=== PATIENT | male | born 1980 | race Caucasian/White ===

== ENCOUNTER 2016-11-10 13:48 | Emergency (ER) | payer BC ==
[2016-11-10 14:28] VITALS: BP 127/84
[2016-11-10] MEDS ORDERED: Ketorolac 30 MG/ML SDV IVPUSH ONE (15:05)
[2016-11-10] MEDS ORDERED: Sodium Chloride 0.9% 10 ML Syringe FLUSH PRN (15:05)
[2016-11-10] MEDS ORDERED: Sodium Chloride 0.9% 1,000 ML IV ONE (15:05)
[2016-11-10] MEDS ORDERED: Dicyclomine 10 MG Cap PO ONE (15:07)
--- NOTE | 2016-11-10 15:12 | EDM.PDOC ---
ED HPI GENERAL MEDICAL PROBLEM - General Chief Complaint: Abdominal Pain Stated Complaint: RIGHT SIDE PAIN Time Seen by Provider: 11/10/16 14:52 Source of Information: Reports: Patient History Limitations: Reports: No Limitations - History of Present Illness INITIAL COMMENTS - FREE TEXT/NARRATIVE: Patient is a 35-year-old male presents ED complaining of sudden onset of right flank pain. This started in the middle the night. Pain has been constant with waxing waning in intensity. Pain is described as being sharp in nature with unpredictable worsening of symptoms. He has a prior history of similar symptoms and was evaluated in the ED for constipation. States he's had 2 bowel movements today described as being hard with no straining required. No blood present. He has no fever/nausea, chest pain, shortness of breath, diarrhea, pain with urination, rash, or any additional complaints. He is taking multiple over-the- counter supplements for weight lifting. Does not have a history of kidney stones or abdominal surgeries. He has taken no prescription medications. Does not smoke. Utilize alcohol only intermittently. Denies recreational drug use. Treatments HAT TRIMMER: Reports: Other (see below) Other Treatments HAT TRIMMER: ibuprofen Right Abdominal Pain Score (Numeric/FACES): 10 - Related Data Allergies Allergy/AdvReac Type Severity Reaction Status Date / Time No Known Allergies Allergy Verified 01/25/16 22:29 Home Meds: Home Meds Hyoscyamine Sulfate [Levsin-Sl] 0.125 mg SL Q6H PRN #10 tab.subl 01/26/16 [Rx] Acetaminophen/HYDROcodone [[place] 325-5 MG] 1 tab PO Q6H PRN #12 tablet 11/10/16 [Rx] Tamsulosin HCl [Flomax] 0.4 mg PO ACBREAKFAST #7 cap.er.24h 11/10/16 [Rx] Past Medical History - Past Health History Medical/Surgical History: Denies Medical/Surgical History Social & Family History - Tobacco Use Smoking Status *Q: Never Smoker Second Hand Smoke Exposure: No - Caffeine Use Caffeine Use: Reports: None - Recreational Drug Use Recreational Drug Use: No ED ROS GENERAL - Review of Systems Review Of Systems: See Below Constitutional: Denies: Fever, Chills, Malaise, Decreased Appetite Respiratory: Reports: No Symptoms Cardiovascular: Reports: No Symptoms GI/Abdominal: Reports: Abdominal Pain. Denies: Black Stool, Bloody Stool, Constipation, Diarrhea, Decreased Appetite, Difficulty Swallowing, Distension, Flatus, Hematemesis, Hematochezia, Melena, Nausea, Vomiting : Reports: Flank Pain (Right flank). Denies: Dysuria, Frequency, Hematuria, Urgency Musculoskeletal: Reports: Back Pain (Right flank) Skin: Denies: Rash Neurological: Reports: No Symptoms ED EXAM, GI/ABD - Physical Exam Exam: See Below Exam Limited By: No Limitations General Appearance: Alert, WD/WN, No Apparent Distress Ears: Hearing Grossly Normal Nose: Normal Inspection Throat/Mouth: Normal Voice, No Airway Compromise Neck: Normal Inspection, Supple Respiratory/Chest: No Respiratory Distress, Lungs Clear, Normal Breath Sounds, No Accessory Muscle Use, Chest Non-Tender Cardiovascular: Normal Peripheral Pulses, Regular Rate, Rhythm, No Murmur GI/Abdominal Exam: Normal Bowel Sounds, Soft, No Organomegaly, No Distention, Tender (Tenderness noted to the right flank. No McBurney's or Ellison's sign present.) (Male) Exam: Deferred Rectal (Males) Exam: Deferred Back Exam: Normal Inspection. No: CVA Tenderness (L), CVA Tenderness (R) Extremities: Normal Inspection Neurological: Alert, Oriented, CN II-XII Intact, Normal Cognition, No Motor/ Sensory Deficits Psychiatric: Normal Affect, Normal Mood Skin Exam: Warm, Dry, Intact, Normal Color, No Rash Course - Vital Signs Last Recorded V/S: Last Vital Signs Temp 97.9 F 11/10/16 14:24 Pulse 83 11/10/16 14:24 Resp 18 11/10/16 14:24 BP 127/84 11/10/16 14:24 Pulse Ox 98 11/10/16 14:24 - Orders/Labs/Meds Orders: Active Orders 24 hr Category Date Time Status Peripheral IV Care [RC] . DIRECTED Care 11/10/16 15:06 Active Abdomen 2V AP Flat Upright [CR] Stat Exams 11/10/16 15:05 Taken DME for Discharge [COMM] Stat Oth 11/10/16 17:30 Ordered Peripheral IV Insertion Adult [OM.PC] Stat Oth 11/10/16 15:05 Ordered Labs: Laboratory Tests 11/10/16 11/10/16 11/10/16 Range/Units 14:50 15:35 15:35 WBC 9.98 H (4.23-9.07) K/mm3 RBC 5.78 (4.63-6.08) M/mm3 Hgb 16.9 (13.7-17.5) gm/L Hct 46.5 (40.1-51.0) % MCV 80.4 (79.0-92.2) fl MCH 29.2 (25.7-32.2) pg MCHC 36.3 H (32.2-35.5) g/dl RDW Std Deviation 34.5 L (35.1-43.9) fL Plt Count 245 (163-337) K/mm3 MPV 9.5 (9.4-12.3) fl Neut % (Auto) 76.3 H (34.0-67.9) % Lymph % (Auto) 17.0 L (21.8-53.1) % [place] % (Auto) 5.2 L (5.3-12.2) % Eos % (Auto) 1.0 (0.8-7.0) Baso % (Auto) 0.4 (0.1-1.2) % Neut # (Auto) 7.61 H (1.78-5.38) K/mm3 Lymph # (Auto) 1.70 (1.32-3.57) K/mm3 [place] # (Auto) 0.52 (0.30-0.82) K/mm3 Eos # (Auto) 0.10 (0.04-0.54) K/mm3 Baso # (Auto) 0.04 (0.01-0.08) K/mm3 Sodium 139 (136-145) mEq/L Potassium 3.9 (3.5-5.1) mEq/L Chloride 105 (98-107) mEq/L Carbon Dioxide 30 (21-32) mEq/L Anion Gap 7.9 (5-15) BUN 20 H (7-18) mg/dL Creatinine 1.1 (0.7-1.3) mg/dL Est Cr Clr Drug Dosing 98.88 mL/min Estimated GFR (MDRD) > 60 (>60) mL/min BUN/Creatinine Ratio 18.2 H (14-18) Glucose 99 (74-106) mg/dL Calcium 9.1 (8.5-10.1) mg/dL Total Bilirubin 0.6 (0.2-1.0) mg/dL AST 24 (15-37) U/L ALT 41 (16-63) U/L Alkaline Phosphatase 63 (46-116) U/L C-Reactive Protein < 0.2 (<1.0) mg/dL Total Protein 7.5 (6.4-8.2) g/dl Albumin 4.2 (3.4-5.0) g/dl Globulin 3.3 gm/dL Albumin/Globulin Ratio 1.3 (1-2) Lipase 131 (73-393) U/L Urine Color Yellow (Yellow) Urine Appearance Clear (Clear) Urine pH 6.5 (5.0-8.0) Ur Specific [place] 1.025 (1.005-1.030) Urine Protein Trace H (Negative) Urine Glucose (UA) Negative (Negative) Urine Ketones Negative (Negative) Urine Occult Blood 3+ H (Negative) Urine Nitrite Negative (Negative) Urine Bilirubin Negative (Negative) Urine Urobilinogen 0.2 (0.2-1.0) Ur Leukocyte Esterase Negative (Negative) Urine RBC 75-100 H (0-5) /hpf Urine WBC 0-5 (0-5) /hpf Ur Epithelial Cells 0-5 (0-5) /hpf Urine Bacteria Few (FEW) /hpf Urine Mucus Few (FEW) /hpf Meds: Medications Discontinued Medications Generic Name Dose Route Start Last Admin Trade Name Freq PRN Reason Stop Dose Admin Dicyclomine HCl 10 mg 11/10/16 15:07 11/10/16 15:45 Bentyl PO 11/10/16 15:08 10 mg ONETIME ONE Administration Sodium Chloride 1,000 mls @ 999 mls/hr 11/10/16 15:05 11/10/16 15:42 Normal Saline IV 11/10/16 16:05 999 mls/hr ONETIME ONE Administration Ketorolac Tromethamine 30 mg 11/10/16 15:05 11/10/16 15:43 Toradol IVPUSH 11/10/16 15:06 30 mg ONETIME ONE Administration Sodium Chloride 10 ml 11/10/16 15:05 11/10/16 15:46 Saline Flush FLUSH 10 ml ASDIRECTED PRN Administration Keep Vein Open Tamsulosin HCl 0.4 mg 11/10/16 17:29 11/10/16 17:54 Flomax PO 11/10/16 17:30 0.4 mg ONETIME ONE Administration - Re-Assessments/Exams Free Text/Narrative Re-Assessment/Exam: IV will be established with normal saline 999 MLS per hour, Toradol 30 mg IVP, and Bentyl 10 mg by mouth. Initial labs and studies include CBC, chem 14, lipase , CRP, UA, and 2 view of the abdomen. 11/10/16 15:41 x-ray of the abdomen did reveal copious amounts of stool. Nonspecific air pattern. No signs of obstruction. Awaiting for results of labs. 11/10/16 17:00 Labs reviewed: White blood cell count 9.98, hemoglobin 16.9, platelet count 245, neutrophil percentage is 76.3 with a mildly elevation in neutrophil number is 7.61, sodium 139, potassium 3.9, creatinine 1.1, glucose 99 , LFTs normal limits, CRP less than 0.2, lipase 131. UA revealed protein trace, occult blood 3+, nitrates negative, leukocyte esterase negative, urine micro pending. Urine Micro revealed RBCs 75-200. CT of the abdomen without contrast ordered renal stone protocol. 11/10/16 17:31 CT completed revealing approximately 3.6 x 3.6 cm kidney stone with hydronephrosis present. Ordered Flomax 0.4 mg by mouth and urine strainer to be sent home with the patient. Final interpretation of CT pending. 11/10/16 18:01 CT abdomen and pelvis impression: Proximal right ureteral stone measuring 4.6 mm at the mid L4 level causing proximal hydronephrosis. Other incidental findings. Will discharge patient home with instructions as documented. Departure - Departure Time of Disposition: 18:02 Disposition: Home, Self-Care 01 Condition: Good Clinical Impression: Kidney stone on right side Hydronephrosis Qualifiers: Hydronephrosis type: with ureteral calculous obstruction Qualified Code(s): N13.2 - Hydronephrosis with renal and ureteral calculous obstruction - Discharge Information Prescriptions: Acetaminophen/HYDROcodone [[place] 325-5 MG] 1 tab PO Q6H PRN #12 tablet PRN Reason: Pain (Severe 7-10) Tamsulosin HCl [Flomax] 0.4 mg PO ACBREAKFAST #7 cap.er.24h Instructions: Pain Medicine Instructions, [id number] Referrals: PCP,None [Primary Care Provider] - Forms: ED Department Discharge, ED Return to Work/School Form Additional Instructions: As discussed CT did reveal kidney stone within the right ureter. It should pass on its own accord. Push the fluids. Take Tylenol and ibuprofen in alternating fashion for pain. Will have you take Flomax 1 tablet every day for the next 7 days. For severe pain not managed with the above therapies take [place] one tab every 6 hours as needed. No driving while taking this medication. Do not take tylenol with the norco. Call and make an appointment with urologist if this kidney stone has not passed by Thursday/. Utilize urine strainer for every urine void. Return to the ED for any new or worsening symptoms. - My Orders Last 24 Hours: My Active Orders 11/10/16 15:05 Abdomen 2V AP Flat Upright [CR] Stat Peripheral IV Insertion Adult [OM.PC] Stat 11/10/16 15:06 Peripheral IV Care [RC] . DIRECTED 11/10/16 17:30 DME for Discharge [COMM] Stat - Assessment/Plan Last 24 Hours: My Active Orders 11/10/16 15:05 Abdomen 2V AP Flat Upright [CR] Stat Peripheral IV Insertion Adult [OM.PC] Stat 11/10/16 15:06 Peripheral IV Care [RC] . DIRECTED 11/10/16 17:30 DME for Discharge [COMM] Stat
[2016-11-10] MEDS ORDERED: Tamsulosin 0.4 MG Cap.ER PO ONE (17:29)
--- NOTE | 2016-11-10 17:50 | CT ---
CT abdomen and pelvis Technique: Multiple axial sections were obtained from above the dome of the diaphragm inferiorly through the pubic symphysis. Intravenous and oral contrast was not utilized. Study has been performed as a ureteral stone protocol. Findings: Right ureter is mildly prominent in size. This is due to an obstructing proximal right ureteral stone measuring 4.6 mm. This stone occurs at the mid L4 level. No other abnormal calcifications are seen along the course of the ureters. No abnormal calcifications are seen within the kidneys. Visualized lung bases are clear. Noncontrast appearance of the liver and spleen appears within normal limits. Adrenal glands show no nodule. Pancreas is within normal limits. Aorta shows no aneurysmal dilatation. Gallbladder shows no calcified gallstones. No retroperitoneal adenopathy or mesenteric abnormalities are seen. Appendix is seen which appears normal. No pelvic mass or adenopathy is seen. Prostate calcifications are incidentally noted. No free fluid or inflammatory change is seen. No bowel dilatation is seen. Bone window settings were reviewed which appears within normal limits for the patient's age. Impression: 1. Proximal right ureteral stone at the mid L4 level causing proximal hydronephrosis. 2. Other incidental findings. Diagnostic code #3
--- NOTE | 2016-11-11 07:35 | CR ---
Abdomen: Supine and upright views of the abdomen were obtained. Comparison: Previous abdominal x-ray of 01/25/16. Findings: Bowel gas pattern appears normal. Calcification within the left pelvis is compatible with phlebolith. No other abnormal calcifications are seen. Calcification noted within the proximal right ureter on subsequent renal stone CT exam is not appreciated on this plain film study. No free air is seen. Bony structures are unremarkable. Impression: 1. Unremarkable two-view abdominal x-ray. Diagnostic code #1
== END 2016-11-10 18:25 | disposition home or self-care (01) ==
LOC: JD.ED 13:48
DX: N13.2 Hydronephrosis with renal and ureteral calculous obstruction (principal)
CPT/HCPCS: 36415; 74020; 74176; 80053; 81001; 83690; 85025; 86140; 96361; 96374; 99284; A9270; J1885; J7040; J7050; 99283

== ENCOUNTER 2019-11-16 03:55 | Emergency (ER) | payer SELFPAY ==
[2019-11-16 04:07] VITALS: BP 125/75; PULSE 75
[2019-11-16] MEDS ORDERED: Ketorolac 30 MG/ML SDV IVPUSH STA (04:21)
[2019-11-16] MEDS ORDERED: Ondansetron 4 MG/2 ML SDV IVPUSH ONE (04:21)
[2019-11-16] MEDS ORDERED: Tamsulosin 0.4 MG Cap.ER PO ONE (04:21)
[2019-11-16] MEDS ORDERED: HYDROmorphone 0.5 MG/0.5 ML Syringe IVPUSH ONE (04:22)
--- NOTE | 2019-11-16 04:24 | EDM.PDOC ---
ED HPI GENERAL MEDICAL PROBLEM - General Chief Complaint: Flank Pain Stated Complaint: POSS KIDNEY STONE Time Seen by Provider: 11/16/19 04:06 Source of Information: Reports: Patient History Limitations: Reports: No Limitations - History of Present Illness INITIAL COMMENTS - FREE TEXT/NARRATIVE: Mr. Izquierdo is a very pleasant 38-year-old gentleman who now presents to the ED with right flank pain that began 2 days ago, 11/14/2019. He describes the pain as sharp and crampy in character. He states that it has been waxing and waning. He has not identified any modifiers. No associated fever, nausea, vomiting, constipation, diarrhea, urinary symptoms, or gross hematuria. The patient has a of a ureterolith only once before, on 11/10/2016, where a CT scan demonstrated a 4.6 mm proximal right ureteral stone. The patient states that his current symptoms are similar to that stone. The patient states that he took some mineral oil yesterday, thinking that his symptoms were due to constipation. He has not taken any Tylenol or ibuprofen since the onset of his pain, stating that he was told back in 2016 to not take ibuprofen. I reviewed the medical record from that time, and, in fact, he was instructed to alternate Tylenol and ibuprofen. His renal function was normal. Nowhere is the recommendation that he not take ibuprofen. Here in the ED, the patient is found to be hemodynamically stable, afebrile, saturating 100% on room air. Other than the right flank pain, the patient denies having a recent fever, chills, sore throat, ear pain, nasal or sinus congestion, cough, dyspnea, chest pain, palpitations, nausea, vomiting, constipation, diarrhea, abdominal pain, urinary symptoms, recent weight gain or weight loss, recent bloody bowel movements or black bowel movements, recent joint aches, headaches, or rashes. The patient does not have a PCP. Right Flank Pain Score (Numeric/FACES): 8 - Related Data Allergies Allergy/AdvReac Type Severity Reaction Status Date / Time No Known Allergies Allergy Verified 11/16/19 04:04 Home Meds: Home Meds Acetaminophen/HYDROcodone [[place] 325-5 MG] 1 - 2 tab PO Q6H PRN #24 tablet 11/16/19 [Rx] Ondansetron [Zofran ODT] 1 tab PO Q8H PRN #15 tab.dis 11/16/19 [Rx] Tamsulosin HCl [Flomax] 1 cap PO QAM PRN #10 cap.er.24h 11/16/19 [Rx] Past Medical History Genitourinary History: Reports: Renal Calculus Social & Family History - Family History Family Medical History: Noncontributory - Tobacco Use Smoking Status *Q: Former Smoker Years of Tobacco use: 4 Packs/Tins Daily: 1 Month/Year Tobacco Last Used: Quit 2000 - Alcohol Use Alcohol Use History: Yes Alcohol Use Frequency: Socially - Recreational Drug Use Recreational Drug Use: No - Living Situation & Occupation Living situation: Reports: , with Spouse Occupation: Employed ([employer]) ED ROS GENERAL - Review of Systems Review Of Systems: Comprehensive ROS is negative, except as noted in HPI. ED EXAM, RENAL/ - Physical Exam Exam: See Below Exam Limited By: No Limitations General Appearance: Alert, No Apparent Distress, Thin Eye Exam: Bilateral Eye: EOMI, Normal Inspection Ears: Normal External Exam, Hearing Grossly Normal Nose: Normal Inspection Throat/Mouth: Normal Inspection, Normal Lips, Normal Voice, No Airway Compromise Head: Atraumatic, Normocephalic Neck: Normal Inspection, Full Range of Motion Respiratory/Chest: No Respiratory Distress, Lungs Clear, Normal Breath Sounds, No Accessory Muscle Use Cardiovascular: Normal Peripheral Pulses, Regular Rate, Rhythm, No Edema, No Gallop, No JVD, No Murmur, No Rub GI/Abdominal: Normal Bowel Sounds, Soft, No Organomegaly, No Distention, No Abnormal Bruit, No Mass, Tender (the patient reports feeling "pressure" with palpation of the right abdomen) Back Exam: Normal Inspection, Full Range of Motion, CVA Tenderness (R). No: CVA Tenderness (L) Extremities: Normal Inspection, Normal Range of Motion, No Pedal Edema, Normal Capillary Refill Neurological: Alert, Oriented, Normal Cognition, No Motor/Sensory Deficits Psychiatric: Normal Affect Skin Exam: Warm, Dry, Intact, Normal Color, No Rash Course - Vital Signs Last Recorded V/S: Last Vital Signs Temp 36.2 C 11/16/19 04:05 Pulse 75 11/16/19 04:05 Resp 16 11/16/19 04:05 BP 125/75 11/16/19 04:05 Pulse Ox 100 11/16/19 04:05 - Orders/Labs/Meds Labs: Laboratory Tests 11/16/19 Range/Units 05:38 Urine Color Yellow (Yellow) Urine Appearance Clear (Clear) Urine pH 7.0 (5.0-8.0) Ur Specific [place] > or = 1.030 (1.005-1.030) Urine Protein Negative (Negative) Urine Glucose (UA) Negative (Negative) Urine Ketones Negative (Negative) Urine Occult Blood 1+ H (Negative) Urine Nitrite Negative (Negative) Urine Bilirubin Negative (Negative) Urine Urobilinogen 0.2 (0.2-1.0) Ur Leukocyte Esterase Negative (Negative) Urine RBC 5-10 H (0-5) /hpf Urine WBC 0-5 (0-5) /hpf Ur Squamous Epith Cells 0-5 (0-5) /hpf Urine Bacteria Few (FEW) /hpf Urine Mucus Few (FEW) /hpf Meds: Medications Discontinued Medications Generic Name Dose Route Start Last Admin Trade Name Freq PRN Reason Stop Dose Admin Hydromorphone HCl 0.5 mg 11/16/19 04:22 11/16/19 04:30 Dilaudid IVPUSH 11/16/19 04:23 0.5 mg ONETIME ONE Administration Sodium Chloride 1,000 mls @ 150 mls/hr 11/16/19 04:30 11/16/19 04:30 Normal Saline IV 150 mls/hr ASDIRECTED MARKIE Administration Ketorolac Tromethamine 30 mg 11/16/19 04:21 11/16/19 04:29 Toradol IVPUSH 11/16/19 04:22 30 mg ONETIME STA Administration Ondansetron HCl 4 mg 11/16/19 04:21 11/16/19 04:30 Zofran IVPUSH 11/16/19 04:22 4 mg ONETIME ONE Administration Tamsulosin HCl 0.4 mg 11/16/19 04:21 11/16/19 04:30 Flomax PO 11/16/19 04:22 0.4 mg ONETIME ONE Administration - Re-Assessments/Exams Free Text/Narrative Re-Assessment/Exam: 11/16/19 04:22 As above, the patient has been experiencing waxing and waning sharp and crampy right flank pain since 11/14/2019. No associated symptoms. No recent fever, and he is afebrile here in the ED. His exam is notable for pressure felt with palpation of his right abdomen, and right CVA tenderness. His symptoms are similar to a prior kidney stone in 2017, and I suspect that he has another one now. I have ordered a urinalysis and a CT of his abdomen and pelvis without contrast to evaluate. In the meantime, the patient will be given IV fluid, IV Dilaudid, IV Zofran, IV Toradol, and oral Flomax. 11/16/19 05:25 CT of the abdomen and pelvis without contrast is read by [facility] as: 1. Few bilateral intrarenal calculi. Mild right perinephric stranding and hydronephrosis secondary to a 3.5 mm calculus located in the right ureter at the level of L4-L5. 2. Remainder of findings as described above. The patient has not yet provided a urine sample. 11/16/19 06:01 The patient's urinalysis is remarkable for 1+ occult blood and 5-10 RBCs, and is otherwise unremarkable. I will discharge the patient home with the recommendation that he take [id number] ibuprofen [id number], and I will write prescriptions for [place], tamsulosin, and Zofran. He is to stay adequately hydrated and strain all of his urine. I will refer him to a Urologist in the event that he does not pass the stone within the next week or so. Departure - Departure Time of Disposition: 06:03 Disposition: Home, Self-Care 01 Condition: Good Clinical Impression: Ureterolithiasis - Discharge Information *PRESCRIPTION DRUG MONITORING PROGRAM REVIEWED*: Not Applicable *COPY OF PRESCRIPTION DRUG MONITORING REPORT IN PATIENT [place]: Not Applicable Prescriptions: Tamsulosin HCl [Flomax] 1 cap PO QAM PRN #10 cap.er.24h PRN Reason: Pain Acetaminophen/HYDROcodone [[place] 325-5 MG] 1 - 2 tab PO Q6H PRN #24 tablet PRN Reason: Pain (Severe 7-10) Ondansetron [Zofran ODT] 1 tab PO Q8H PRN #15 tab.dis PRN Reason: Nausea/Vomiting Instructions: Kidney Stones, [id number] Referrals: PCP,None [Primary Care Provider] - Waldemar Lenz MD [Ordering Only Provider] - Forms: ED Department Discharge Additional Instructions: You were seen in the emergency room after developing right flank pain on 11/14/2019. Work-up in the ER included a urinalysis and a CT scan of your abdomen and pelvis without contrast. Your urinalysis was unremarkable. You do not have a urinary tract infection. The CT of your abdomen and pelvis found that you have a 3.5 mm stone in the middle of your right ureter. Based on the size and location of the stone, you will likely pass it within the next week or so. Stay adequately hydrated and strain all of your urine. If you pass the stone, take it to your doctor for analysis. Take [id number]-ptnovva ibuprofen, 3 to 4 tablets (600-800 mg) every 8 hours, [id number], initially, then as needed. You may take 1 to 2 tablets of the prescription opioid [place] up to every 6 hours, as needed for pain not relieved by ibuprofen. If you take [place], do not drive or operate heavy machinery for 12 hours afterwards. [place] may cause constipation, so consider taking a stool softener. Take 1 tablet of the anti-spasm medicine Flomax every morning, starting tomorrow morning, , 11/17/2019. You may dissolve 1 tablet of the anti-nausea medicine Zofran on your tongue up to every 8 hours, as needed for nausea/vomiting. If you are still having significant discomfort after 1 week, please follow-up with the Urologist Dr. Waldemar Lenz, in [place], for further evaluation and treatment. If any other problems, please do not hesitate to return to the ER. Sepsis Event Note (ED) - Evaluation Sepsis Screening Result: No Definite Risk - Focused Exam Vital Signs: Vital Signs Temp Pulse Resp BP Pulse Ox 11/16/19 04:05 36.2 C 75 16 125/75 100
[2019-11-16] MEDS ORDERED: Sodium Chloride 0.9% 1,000 ML IV SCH (04:30)
--- NOTE | 2019-11-16 06:20 | CT ---
CT abdomen and pelvis Technique: Multiple axial sections were obtained from above the dome of the diaphragm inferiorly through the pubic symphysis. Intravenous and oral contrast not utilized. Study has been performed as ureteral stone protocol. Reconstructed coronal and sagittal images were obtained. Comparison: Previous CT abdomen and pelvis study of 11/10/16. Findings: 2 nonobstructing calculi are seen within the upper left kidney as well as 2 nonobstructing calculi within the mid and lower right kidney. These all measure less than 5 mm in size. Right collecting system is mildly prominent. Proximal right ureter is prominent in size. These findings are caused by a mid obstructing right-sided ureteral stone measuring around 4 mm in greatest dimension. No other ureteral calculi are seen. No bladder calculi are noted. Other findings: Visualized lung bases show nothing acute. Noncontrast appearance of the liver shows no focal abnormality. Spleen appears within normal limits. Adrenal glands show no nodule. Pancreas shows shows an apparent small cyst on the axial views which is not confirmed on the reconstructed coronal images and most likely is artifact. Pancreas is otherwise unremarkable. Aorta shows no aneurysm. No retroperitoneal adenopathy is seen. Appendix is seen which is normal in size. No pelvic mass or adenopathy is appreciated. Very small fat-containing inguinal hernias are seen on both sides. Bone window settings were reviewed which show no acute osseous finding. Impression: 1. 2 nonobstructing calculi within each kidney which measure less than 5 mm. 2. 4 mm obstructing stone within the mid right ureter. 3. No other acute abnormality is appreciated on noncontrast CT study of the abdomen and pelvis. Diagnostic code #3 This report was dictated in MDT I agree with preliminary report from [facility], finalized on 11/16/19, 6:23 AM Central Daylight Time
== END 2019-11-16 06:23 | disposition home or self-care (01) ==
LOC: JD.ED 03:55
DX: N13.2 Hydronephrosis with renal and ureteral calculous obstruction (principal); Z87.891 Personal history of nicotine dependence
CPT/HCPCS: 74176; 81001; 96361; 96374; 96375; 99284; A9270; J1170; J1885; J2405; J7030; 99283